=== PATIENT | male | born 1975 | race Caucasian/White ===

== ENCOUNTER 2020-01-04 20:59 | Outpatient (CLI) | payer BC | END 2020-01-04 21:00 | disposition critical access hospital (66) | LOC: EMS 20:59 | PROVIDERS: ATTEND Surgery | DX: R55 Syncope and collapse (principal); R51 Headache; R53.83 Other fatigue | CPT/HCPCS: A0425; A0429 ==

== ENCOUNTER 2020-01-04 21:14 | Emergency (ER) | payer BC ==
--- NOTE | 2020-01-04 21:24 | ED Physician Documentation ---
PD HPI SYNCOPE - Stated complaint Stated Complaint: SZ - Chief complaint Chief Complaint: Neuro - History obtained from History obtained from: Patient, Family, EMS - History of Present Illness Witnessed: Witnessed Timing - onset: How many minutes ago (approximately 30-45) Duration: Minutes Preceding symptoms: None Associated symptoms: No: Incontinant of urine, Incontinant of stool Contributing factors: None Injury occurred: None Pain level max: 0 Pain level now: 0 Similar symptoms before: Has not had sx before Recently seen: Not recently seen - Additional information Additional information: BIBA. Patient was lying on the floor playing with his children, approximately 30-45 minutes [employer], when he had sudden LOC without prodrome. His did not observe seizure-like activity but describes complete LOC. She says his skin appeared to be flushed (face appeared to be "red", per ), and he was diaphoretic. She called 911 and over the subsequent 10-15 minutes, patient gradually became increasingly awake and alert, initially was confused and medics report that he was slightly combative on their arrival, but en route to ED became progressively more awake, alert, and oriented, and he is AAOx3, NAD and asymptomatic by the time he arrives to ED. He denies h/o similar episodes, denies regular/heavy alcohol use. Review of Systems Constitutional: reports: Sweats. denies: Fever, Chills Eyes: reports: Reviewed and negative Cardiac: reports: Reviewed and negative Respiratory: reports: Reviewed and negative GI: reports: Reviewed and negative : denies: Incontinent Musculoskeletal: reports: Reviewed and negative Neurologic: reports: Confused (resolved), LOC. denies: Generalized weakness, Focal weakness, Numbness, Headache, Head injury PD PAST MEDICAL HISTORY - Past Medical History Past Medical History: No - Past Surgical History Past Surgical History: No - Allergies Allergies/Adverse Reactions: Allergies Allergy/AdvReac Type Severity Reaction Status Date / Time No Known Drug Allergies Allergy Verified 01/04/20 21:19 - Living Situation Living Situation: reports: With spouse/s.o. Living Arrangement: reports: At home - Social History Does the pt have substance abuse?: No PD ED PE NORMAL - Vitals Vital signs reviewed: Yes - General General: Alert and oriented X 3, No acute distress, Well developed/nourished - HEENT HEENT: Atraumatic, PERRL, EOMI, Moist mucous membranes, Other (no tongue lac/abrasion/echymosis) - Neck Neck: Supple, no meningeal sign, No bony TTP - Cardiac Cardiac: RRR, No murmur, No gallop, No rub - Respiratory Respiratory: No respiratory distress, Clear bilaterally - Abdomen Abdomen: Soft, Non tender - Derm Derm: Normal color, Warm and dry - Neuro Neuro: Alert and oriented X 3, 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, No motor deficit, No sensory deficit, Normal speech Eye Opening: Spontaneous Motor: Obeys Commands Verbal: Oriented GCS Score: 15 Results - Vitals Vitals: Vital Signs - 24 hr 01/04/20 01/04/20 01/04/20 21:19 21:22 22:24 Temperature 36.7 C Heart Rate 87 83 65 Respiratory 20 18 16 Rate Blood Pressure 148/86 H 148/86 H 145/88 H O2 Saturation 100 98 98 01/04/20 23:25 Temperature Heart Rate 69 Respiratory 16 Rate Blood Pressure 132/81 H O2 Saturation 97 Oxygen O2 Source Room air - EKG (time done) No standard instances Rate: Rate (enter#) (76) Rhythm: NSR [place]: Normal Intervals: Normal PA QRS: Normal Ischemia: Normal ST segments, T wave inversion (III, flat T avF) - Labs Labs: Laboratory Tests 01/04/20 01/04/20 01/04/20 21:21 21:52 21:52 WBC 10.4 RBC 4.79 Hgb 15.1 Hct 43.4 MCV 90.6 MCH 31.5 H MCHC 34.8 RDW 12.8 Plt Count 200 MPV 8.9 Neut # (Auto) 5.3 Lymph # (Auto) 4.0 H Wilkinson # (Auto) 0.7 Eos # (Auto) 0.2 Baso # (Auto) 0.1 Absolute Nucleated RBC 0.00 Nucleated RBC % 0.0 Sodium 141 Potassium 3.6 Chloride 105 Carbon Dioxide 23 Anion Gap 13.0 BUN 13 Creatinine 1.1 Estimated GFR (MDRD) 73 L Glucose 104 H POC Whole Bld Glucose 97 Calcium 8.9 Total Bilirubin 0.7 AST 33 ALT 47 Alkaline Phosphatase 52 Total Protein 7.3 Albumin 4.7 Globulin 2.6 Albumin/Globulin Ratio 1.8 Lipase 40 - Rads (name of study) CT head Radiology: Prelim report reviewed, See rad report PD MEDICAL DECISION MAKING - ED course Complexity details: reviewed results, re-evaluated patient, considered differential, d/w patient ED course: Remained asymptomatic during ED stay. Normal neurologic exam, reassuring test results including blood tests and CT head. Instructed to f/u with neurology and to not drive until he is cleared to do so by a neurologist Departure - Departure Disposition: 01 Home, Self Care Clinical Impression: Seizure Condition: Good Instructions: ED Seizure New Onset Unk Cause Comments: You will need to follow up with a neurologist for further testing, such as EEG. Contact your insurance provider or your primary medical provider to obtain a referral. DO NOT DRIVE until you are cleared to do so by either your primary medical provider or a neurologist. Discharge Date/Time: 01/04/20 23:28
[2020-01-04 21:58] LABS: BASOPHILS # (AUTO) 0.1 10^3/uL (0.0-0.1); BASOPHILS % (AUTO) 0.6 %; EOSINOPHILS # (AUTO) 0.2 10^3/uL (0.0-0.7); EOSINOPHILS % (AUTO) 1.4 %; HGB - HEMOGLOBIN 15.1 g/dL (14.0-18.0); MEAN CORPUSCULAR HEMOGLOBIN 31.5 pg (27.0-31.0); MEAN CORPUSCULAR HGB CONC 34.8 g/dL (32.0-36.0); MEAN CORPUSCULAR VOLUME 90.6 fL (80.0-94.0); MEAN PLATELET VOLUME 8.9 fL (7.4-11.4); MONOCYTES # (AUTO) 0.7 10^3/uL (0.0-1.0); MONOCYTES % (AUTO) 7.1 %; NEUTROPHILS # (AUTO) 5.3 10^3/uL (1.5-6.6); NEUTROPHILS % (AUTO) 51.4 %; PLT - PLATELET COUNT 200 10^3/uL (130-450); RED BLOOD COUNT 4.79 10^6/uL (4.70-6.10); RED CELL DISTRIBUTION WIDTH 12.8 % (12.0-15.0); WHITE BLOOD COUNT 10.4 x10^3/uL (4.8-10.8)
[2020-01-04 22:10] LABS: ALBUMIN 4.7 g/dL (3.2-5.5); ALBUMIN/GLOBULIN RATIO 1.8 (1.0-2.2); BILIRUBIN,TOTAL 0.7 mg/dL (0.2-1.0); CALCIUM 8.9 mg/dL (8.5-10.3); CREATININE 1.1 mg/dL (0.6-1.2); TOTAL PROTEIN 7.3 g/dL (6.7-8.2)
[2020-01-04 23:26] VITALS: BP 132/81
--- NOTE | 2020-01-05 07:45 | CT Report ---
PROCEDURE: HEAD WO INDICATIONS: seizure TECHNIQUE: Noncontrast 4.5 mm thick angled axial sections acquired from the foramen magnum to the vertex. For r adiation dose reduction, the following was used: automated exposure control, adjustment of mA and/or kV according to patient size. COMPARISON: None. FINDINGS: Image quality: Excellent. CSF spaces: Basal cisterns are patent. No extra-axial fluid collections. Ventricles are normal in size and shape. Brain: No midline shift. No intracranial masses or hemorrhage. Knight-white matter interface is norm al. Skull and face: Calvarium and visualized facial bones are intact, without suspicious lesions. Sinuses: Visualized sinuses and mastoids are clear. IMPRESSION: Negative head CT. No evidence of acute stroke, hemorrhage, or mass. A preliminary report with the above findings was provided at the time of the study by [facility]. Reviewed by: Edwin Tucker MD on 01/05/2020 6:43 AM [facility] Approved by: Edwin Tucker MD on 01/05/2020 6:43 AM [facility] Station ID: [id number]
== END 2020-01-04 23:28 | disposition home or self-care (01) ==
LOC: ED 21:14
DX: R56.9 Unspecified convulsions (principal)
CPT/HCPCS: 36415; 70450; 80053; 83690; 85025; 93005; 99283; 99284